=== PATIENT | female | born 2000 | race Caucasian/White ===

== ENCOUNTER 2021-03-10 10:24 | Emergency (ER) | payer OTHER ==
[~2021-03-10] VITALS: Ht 165.1 cm; Wt 99.8 kg
[~2021-03-10 10:24] MED LIST: BENADRYL25 MG PO; Norco 5-325 Ta1 EACH PO
[2021-03-10] MEDS ORDERED: Amoxicillin500 MG PO (11:23)
== END 2021-03-10 11:38 | disposition home or self-care (01) ==
LOC: ER 10:24
DX: U07.1 COVID-19 (principal)
CPT/HCPCS: 87430; A9270; J1100